=== PATIENT | male | born 1965 | race Caucasian/White ===

== ENCOUNTER → 2021-12-06 | Outpatient (CLI) | payer BC | END | disposition home or self-care (01) | LOC: LABWHC1 09:32 | PROVIDERS: ATTEND Surgery Plastic and Reconstructive Surgery | DX: Z01.818 Encounter for other preprocedural examination (principal); R07.9 Chest pain, unspecified | CPT/HCPCS: 36415; 93005 ==

== ENCOUNTER 2021-12-29 11:04 | Day surgery (SDC) | payer BC ==
--- NOTE | 2021-12-29 09:40 | P.GSHP ---
History of Present Illness H&P Date: 12/29/21 CHIEF COMPLAINT: Inguinal hernia, left HISTORY OF PRESENT ILLNESS: The patient is a 56-year-old male who presents with a history of swelling and pain along the left groin. He's noted increased swelling including pain of the area. Now he presents for repair of his inguinal hernia. PAST MEDICAL HISTORY: Please see list. PAST SURGICAL HISTORY: Please see list. MEDICATIONS: Please see list. ALLERGIES: Please see list. SOCIAL HISTORY: No illicit drug use FAMILY HISTORY: No reports of Crohn disease or ulcerative colitis. REVIEW OF ORGAN SYSTEMS: CONSTITUTIONAL: No reports of fevers or chills. No reports of weight loss despite prior attempts. GI: Denies any blood in stools or constipation. PHYSICAL EXAM: VITAL SIGNS: Stable GENERAL: Well-developed pleasant male in no acute distress. HEENT: No scleral icterus. Extraocular movements grossly intact. Moist buccal mucosa. NECK: Supple without lymphadenopathy. CHEST: Unlabored respirations. Equal bilateral excursions. CARDIOVASCULAR: Regular rate and rhythm. Distal 2+ pulses. ABDOMEN: Soft, nondistended. No peritoneal signs. Palpable defect of the left groin. MUSCULOSKELETAL: No clubbing, cyanosis, or edema. ASSESSMENT: 1. Inguinal hernia, left PLAN: 1. Recommend proceeding with a robotic inguinal repair with mesh with possible bilateral approach. 2. Benefits and risks of surgical intervention was discussed including possibility of open technique. 3. DVT prophylaxis. 4. Antibiotic prophylaxis. 5. Non narcotic pain management including abdominal wall block described 6. Blood sugar glucose described. 7. Weight loss management described. Past Medical History Past Medical History: No Reported History History of Any Multi-Drug Resistant Organisms: None Reported Past Surgical History: No Surgical Hx Reported Additional Past Anesthesia/Blood Transfusion Reaction / Comment(s): no family problems w/anethesia, pt. has never had surgery Smoking Status: Former smoker - Past Family History Mother Family Medical History: No Reported History Medications and Allergies Home Medications Medication Instructions Recorded Confirmed Type No Known Home Medications 12/28/21 12/28/21 History Allergies Allergy/AdvReac Type Severity Reaction Status Date / Time No Known Allergies Allergy Verified 12/28/21 08:31
[~2021-12-29 11:04] MED LIST: ACETAMINOPHEN TAB 500 MG TAB PO PRN; FAMOTIDINE 20 MG TAB PO STA; GABAPENTIN 300 MG CAP PO PRN; MELOXICAM 7.5 MG TAB PO SCH; TAMSULOSIN 0.4 MG CAP.ER.24H PO PRN
[2021-12-29] MEDS ORDERED: MIDAZOLAM 2 MG/2 ML VIAL IVP ONE (11:27)
[2021-12-29] MEDS ORDERED: LACTATED RINGERS 1,000 ML IV ONE (11:41)
[2021-12-29] MEDS: HEPARIN SODIUM,PORCINE/PF 5,000 UNIT/0.5 ML SYRINGE SQ PRN ×2 (11:42→12:38)
[2021-12-29] MEDS ORDERED: FAMOTIDINE 20 MG TAB PO ONE (11:44)
[2021-12-29 12:09] LABS: Basophils # (A) 0.1 k/uL (0-0.2); Basophils % (A) 1 %; Eosinophils # (A) 0.1 k/uL (0-0.7); Eosinophils % (A) 2 %; HCT 46.4 % (39.0-53.0); HGB 16.4 gm/dL (13.0-17.5); Lymphocytes # (A) 2.1 k/uL (1.0-4.8); Lymphocytes % (A) 33 %; MCH 30.7 pg (25.0-35.0); MCHC 35.3 g/dL (31.0-37.0); MCV 87.2 fL (80.0-100.0); Mean Platelet Volume 8.8; Monocytes # (A) 0.4 k/uL (0-1.0); Monocytes % (A) 7 %; Neutrophils # (A) 3.5 k/uL (1.3-7.7); Neutrophils % (A) 55 %; Platelet Count 242 k/uL (150-450); RBC 5.32 m/uL (4.30-5.90); RDW 12.8 % (11.5-15.5); WBC 6.4 k/uL (3.8-10.6)
[2021-12-29 12:28] LABS: ALT 56 U/L (4-49); African American GFR (CKD) >90 (>60 ml/min/1.73 sqM); Albumin 4.3 g/dL (3.5-5.0); Anion Gap 11 mmol/L; Blood Urea Nitrogen 8 mg/dL (9-20); Carbon Dioxide 23 mmol/L (22-30); Chloride 106 mmol/L (98-107); Glucose 98 mg/dL (74-99); Non-African American GFR(CKD) >90 (>60 ml/min/1.73 sqM); Sodium 140 mmol/L (137-145); Total Bilirubin 1.3 mg/dL (0.2-1.3); Total Protein 7.6 g/dL (6.3-8.2)
[2021-12-29 12:47] LABS: AST 48 U/L (17-59); Alkaline Phosphatase 62 U/L (38-126); Potassium 4.8 mmol/L (3.5-5.1)
[2021-12-29] MEDS ORDERED: LIDOCAINE 1%-EPI 1:100,000 20 ML VIAL SQ ONE ×2 (13:01→14:21)
[2021-12-29] MEDS ORDERED: PROPOFOL 10 MG/ML 20 ML VIAL IV ONE (13:44)
[2021-12-29] MEDS ORDERED: LIDOCAINE 2% INJ 20 MG/ML (2 ML VIAL) ONE (13:44)
[2021-12-29] MEDS ORDERED: NEOSTIGMINE 1 MG/ML 10 ML VIAL ONE (13:44)
[2021-12-29] MEDS ORDERED: ROCURONIUM 10 MG/ML (5 ML VIAL) IV ONE (13:44)
[2021-12-29] MEDS ORDERED: fentaNYL (PF) 50 MCG/ML 2 ML AMP ONE (13:44)
[2021-12-29] MEDS ORDERED: GLYCOPYRROLATE 0.2 MG/ML 2 ML VIAL ONE (13:44)
[2021-12-29] MEDS ORDERED: MIDAZOLAM 2 MG/2 ML VIAL ONE (13:44)
[2021-12-29] MEDS ORDERED: DEXAMETHASONE SOD PHOSPHATE 4 MG/ML 1 ML VIAL ONE (13:44)
[2021-12-29] MEDS ORDERED: SUCCINYLCHOLINE CHLORIDE 200 MG/10 ML VIAL IV ONE (13:44)
[2021-12-29] MEDS ORDERED: ROPIVACAINE 5 MG/ML 30 ML VIAL ONE (13:44)
[2021-12-29 15:27] VITALS: TEMP 97.1
--- NOTE | 2021-12-29 15:51 | P.OP ---
Date of Procedure: 12/29/21 Description of Procedure: SURGEON: KATHERINE LU MD PREOPERATIVE DIAGNOSES: 1. Initial left inguinal hernia POSTOPERATIVE DIAGNOSES: 1. Initial left inguinal hernia, indirect 3 cm, with sigmoid colon incarcerated OPERATION: 1. Robotic assisted da Deshawn Xi laparoscopic repair of left inguinal hernia repair with ventralight ST mesh, 11.4 cm. Anesthesia: GETA, local Estimated Blood Loss (ml): 5 Pathology: other (Left inguinal sac) Condition: stable Disposition: floor COMPLICATIONS: None. Operative Findings: 1. Large left inguinal indirect hernia, 3 cm with sigmoid colon incarceration 2. No right inguinal hernia INDICATIONS: The patient is a 56-year-old gentleman who presents with history of left inguinal hernia. Now presents for definitive surgical intervention. Laparoscopic versus open and robotic approaches were discussed. Benefits and risks including bleeding, infection, injury to the vas deferens as well as sterility and chronic groin pain were reviewed. Placement of mesh was also described. Informed consent was obtained. DESCRIPTION: In the preoperative area, the patient was marked with indelible marker along the left groin. The patient was brought to the operating room and laid in supine position. After general induction, the abdomen had been prepped and draped in standard sterile fashion. Ioban draping was also placed. Prior to incision, a timeout protocol was confirmed with surgical team regarding patient's name including procedures to be performed and location along the left groin. Initial positioning for the robotic assisted ports were selected whereby 20 cm superior to the target anatomy, 0 degree 5 mm laparoscopic trocar entry was performed at the left upper quadrant. The abdomen was insufflated to 15 mmHg which he had tolerated well. Diagnostic laparoscopy demonstrated fatty liver disease. Additionally the sigmoid colon was incarcerated into the left groin with an indirect left inguinal hernia over 3 cm in size. The right groin was unremarkable. Next, along the epigastrium, 8 mm robot trocar was placed. An 8-mm robotic trocar was placed under direct visualization at the right upper quadrant. The 5 mm port was exchanged for a 8 mm trocar. All trocars were positioned between 8 to 10-cm apart from each other. The patient was placed in reverse Trendelenburg position, 14. The [employer] XI robot was primed, draped, prepared for docking along the upper abdomen of the patient. I then went to the [employer] [employer] [facility] console. The assistant site manager was at bedside for exchange of the robot arms and equipment. At the left groin, over 3 cm indirect inguinal hernia was identified. The hernia sac was evaginated whereby the peritoneum was scored using Endo scissors with cautery. Once completely reduced into the abdominal cavity, the peritoneal sac of the hernia was identified. The sac was resected and then passed off for further pathological analysis. The size of the hernia defect was 3 cm with intraoperative films obtained. Using nonabsorbable 2-0 VLOC, the peritoneal defect of the left inguinal hernia site was closed using a pursestring suture. The defect was found to be completely closed with complete reduction of the left inguinal hernia was confirmed. As an onlay, an 11.[address] mesh by [employer] was cut in half and entered into the abdominal cavity via the 8 mm trocar. The mesh was tacked to the pelvis using absorbable 2-0 VLOC x 9-inch length sutures. The robot was undocked from the patient's bedside. I then rescrubbed into the case. Insufflation was released from the abdominal cavity and all instruments were removed from the abdominal cavity. The rest of incisions were reapproximated using 4-0 Monocryl in a running subcuticular fashion. Incisions were cleansed using dilute hydrogen peroxide. Liquid glue was applied to the skin. At the end of the procedure, the needle, sponge and instrument counts had been verified correct by the surgical dressing maker. The patient had tolerated the procedure well and was taken to the postanesthesia care unit in stable condition. Intraoperative findings were described to the patient's family who were pleased with the level of care. Plan - Discharge Summary Discharge Rx Participant: No New Discharge Prescriptions: New Ibuprofen [Motrin] 600 mg PO Q8HR PRN #30 tab PRN Reason: Pain Acetaminophen Tab [Tylenol Tab] 1,000 mg PO Q6HR PRN #30 tablet PRN Reason: Pain Tamsulosin [Flomax] 0.4 mg PO DAILY #5 cap Discharge Medication List Acetaminophen Tab [Tylenol Tab] 1,000 mg PO Q6HR PRN #30 tablet 12/29/21 [Rx] Ibuprofen [Motrin] 600 mg PO Q8HR PRN #30 tab 12/29/21 [Rx] Tamsulosin [Flomax] 0.4 mg PO DAILY #5 cap 12/29/21 [Rx] Follow up Appointment(s)/Referral(s): Katherine Lu MD [STAFF PHYSICIAN] - 01/03/22 Patient Instructions/Handouts: Inguinal Hernia (DC), Laparoscopic Herniorrhaphy (IP), *[facility] - Managing Your Pain After Surgery Without Opioids Activity/Diet/Wound Care/Special Instructions: Using antibacterial soap. No lifting over 10 pounds 2 weeks, Jan 12 May shower. No bathtub soaks for 2 weeks, Jan 12 Use ice along incisions for today to prevent swelling. Take tylenol, aleve/ibuprofen, simethicone scheduled for 3 days for best pain relief
[2021-12-29 16:25] VITALS: RESP 16
[2021-12-29 17:51] VITALS: BP 124/76; PULSE 75
--- NOTE | 2021-12-30 09:41 | P.ANPRN ---
Procedure Note - Anesthesia - Nerve Block Performed Bilateral Transversus Abdominis Single Time Out Performed: Yes Date of Procedure: 12/29/21 Procedure Start Time: 12:26 Procedure Stop Time: 12:33 Location of Patient: PreOp Indication: Acute Post-Operative Pain, Requested by Surgeon Sedation Type: Sedate with meaningful contact maintained Preparation: Sterile Prep Position: Supine Needle Types: Pajunk Needle Gauge: 21 Ultrasound used to visualize needle placement: Yes Ultrasound used to observe medication spread: Yes Blood Aspirated: No Pain Paresthesia on Injection Noted: No Resistance on Injection: Normal Image Stored and Saved: Yes Events: Uneventful and Well Tolerated (ropivacaine 0.5% 20 mL plus dexamethasone 4 mg given bilaterally)
== END 2021-12-29 17:45 | disposition home or self-care (01) ==
LOC: OR 11:04
PROVIDERS: ATTEND Surgery Plastic and Reconstructive Surgery
DX: K40.90 Unilateral inguinal hernia, without obstruction or gangrene, not specified as recurrent (principal); G89.18 Other acute postprocedural pain; Z79.899 Other long term (current) drug therapy; Z87.891 Personal history of nicotine dependence
CPT/HCPCS: 64488; 80053; 85025; 49650; C1781; J2250; J0330; J1100; J2710; J0690; J3010; J2795; J2704; J1644; J2001; 88302

== ENCOUNTER → 2023-02-20 | Outpatient (CLI) | payer BC | END | disposition home or self-care (01) | LOC: LABWHC1 11:22 | PROVIDERS: ATTEND Surgery Plastic and Reconstructive Surgery | DX: I11.9 Hypertensive heart disease without heart failure (principal); I49.3 Ventricular premature depolarization | CPT/HCPCS: 36415; 93005 ==

== ENCOUNTER 2023-03-16 05:43 | Day surgery (SDC) | payer BC ==
[~2023-03-16 05:43] MED LIST changes: -FAMOTIDINE 20 MG TAB PO STA; -GABAPENTIN 300 MG CAP PO PRN; +HEPARIN SODIUM,PORCINE 5,000 UNIT/ML 1 ML VIAL SQ PRN; +MELOXICAM 7.5 MG TAB PO PRN; -MELOXICAM 7.5 MG TAB PO SCH; +ONDANSETRON 4 MG/2 ML VIAL IVP PRN; -TAMSULOSIN 0.4 MG CAP.ER.24H PO PRN
[2023-03-16] MEDS ORDERED: LACTATED RINGERS 1,000 ML IV SCH (06:09)
[2023-03-16] MEDS ORDERED: TAMSULOSIN 0.4 MG CAP.ER.24H PO STA (06:32)
--- NOTE | 2023-03-16 06:32 | P.GSHP ---
History of Present Illness H&P Date: 03/16/23 CHIEF COMPLAINT: Inguinal hernia, right. HISTORY OF PRESENT ILLNESS: The patient is a 57-year-old male who presents with a history of swelling and pain along the right groin. He's noted increased swelling including pain of the area. Now he presents for repair of his inguinal hernia. PAST MEDICAL HISTORY: Please see list. PAST SURGICAL HISTORY: Please see list. MEDICATIONS: Please see list. ALLERGIES: Please see list. SOCIAL HISTORY: No illicit drug use FAMILY HISTORY: No reports of Crohn disease or ulcerative colitis. REVIEW OF ORGAN SYSTEMS: CONSTITUTIONAL: No reports of fevers or chills. No reports of weight loss despite prior attempts. GI: Denies any blood in stools or constipation. PHYSICAL EXAM: VITAL SIGNS: Stable GENERAL: Well-developed pleasant male in no acute distress. HEENT: No scleral icterus. Extraocular movements grossly intact. Moist buccal mucosa. NECK: Supple without lymphadenopathy. CHEST: Unlabored respirations. Equal bilateral excursions. CARDIOVASCULAR: Regular rate and rhythm. Distal 2+ pulses. ABDOMEN: Soft, nondistended. No peritoneal signs. Palpable defect of the right groin. MUSCULOSKELETAL: No clubbing, cyanosis, or edema. ASSESSMENT: 1. Inguinal hernia, right PLAN: 1. Recommend proceeding with a robotic inguinal repair with mesh with possible bilateral approach. 2. Benefits and risks of surgical intervention was discussed including possibility of open technique. 3. DVT prophylaxis. 4. Antibiotic prophylaxis. 5. Non narcotic pain management including abdominal wall block described 6. Blood sugar glucose described. 7. Weight loss management described. Past Medical History Past Medical History: Sleep Apnea/CPAP/BIPAP Additional Past Medical History / Comment(s): dx. years ago w/mild sleep apnea- doesn't need anything for it History of Any Multi-Drug Resistant Organisms: None Reported Past Surgical History: Hernia Repair Additional Past Surgical History / Comment(s): left inguinal hernia repair Past Anesthesia/Blood Transfusion Reactions: No Reported Reaction Additional Past Anesthesia/Blood Transfusion Reaction / Comment(s): no family problems w/anethesia, pt. has never had surgery Smoking Status: Former smoker - Past Family History Mother Family Medical History: No Reported History Medications and Allergies Home Medications Medication Instructions Recorded Confirmed Type No Known Home Medications 03/14/23 03/14/23 History Allergies Allergy/AdvReac Type Severity Reaction Status Date / Time Penicillins Allergy passed out Verified 03/16/23 06:26 as a kid
[2023-03-16] MEDS ORDERED: HYDROmorphone 0.5 MG/0.5 ML SYRINGE IVP PRN (07:00)
[2023-03-16] MEDS ORDERED: MIDAZOLAM 2 MG/2 ML VIAL IV PRN (07:00)
[2023-03-16] MEDS ORDERED: TAMSULOSIN 0.4 MG CAP.ER.24H PO ONE (07:33)
--- NOTE | 2023-03-16 07:39 | P.ANPRN ---
Procedure Note - Anesthesia - Nerve Block Performed Right Erector Spinae Single Time Out Performed: Yes Date of Procedure: 03/16/23 Procedure Start Time: 07:05 Procedure Stop Time: 07:15 Location of Patient: PreOp Indication: Acute Post-Operative Pain, Analgesia, Requested by Surgeon Sedation Type: Sedate with meaningful contact maintained Preparation: Sterile Prep Position: Sitting Needle Types: Pajunk Needle Gauge: 21 Ultrasound used to visualize needle placement: Yes Ultrasound used to observe medication spread: Yes Injectate: 0.5% Ropivacaine (see comment for volume) (Ropiv 10ml+NS 10ml) Blood Aspirated: No Pain Paresthesia on Injection Noted: No Resistance on Injection: Normal Image Stored and Saved: Yes Events: Uneventful and Well Tolerated
[2023-03-16] MEDS ORDERED: SODIUM CHLORIDE 0.9% (PF) 10 ML VIAL ONE (07:48)
[2023-03-16] MEDS ORDERED: SUCCINYLCHOLINE CHLORIDE 200 MG/10 ML VIAL IV ONE (07:48)
[2023-03-16] MEDS ORDERED: ROCURONIUM 10 MG/ML (5 ML VIAL) IV ONE (07:48)
[2023-03-16] MEDS ORDERED: LIDOCAINE 1% INJ 10MG/ML (20 ML MDV) ONE (07:48)
[2023-03-16] MEDS ORDERED: KETAMINE HCL IN 0.9 % NACL 50 MG/5 ML SYRINGE ONE (07:48)
[2023-03-16] MEDS ORDERED: fentaNYL (PF) 50 MCG/ML 2 ML AMP ONE (07:48)
[2023-03-16] MEDS ORDERED: MIDAZOLAM 2 MG/2 ML VIAL ONE (07:48)
[2023-03-16] MEDS ORDERED: GLYCOPYRROLATE 0.2 MG/ML 2 ML VIAL ONE (07:48)
[2023-03-16] MEDS ORDERED: ROPIVACAINE 5 MG/ML 30 ML VIAL ONE (07:48)
[2023-03-16] MEDS ORDERED: PROPOFOL 10 MG/ML 20 ML VIAL IV ONE (07:48)
[2023-03-16] MEDS ORDERED: NEOSTIGMINE 1 MG/ML 10 ML VIAL ONE (07:48)
[2023-03-16] MEDS ORDERED: LIDOCAINE 0.5%-EPI 1:200,000 50 ML VIAL SQ ONE (07:53)
[2023-03-16] MEDS ORDERED: LACTATED RINGERS 1,000 ML IV ONE (09:22)
--- NOTE | 2023-03-16 09:37 | P.OP ---
Date of Procedure: 03/16/23 Description of Procedure: SURGEON: KATHERINE LU MD PREOPERATIVE DIAGNOSES: 1. Initial right inguinal hernia 2. Prior left inguinal hernia repair POSTOPERATIVE DIAGNOSES: 1. Initial right inguinal hernia, indirect with small bowel obstruction 2. Prior left inguinal hernia repair 3. Pelvic adhesions, left OPERATION: 1. Robotic-assisted da Deshawn Xi laparoscopic right inguinal hernia repair with mesh, 11.[address] 2. Robotic-assisted da Deshawn Xi laparoscopic lysis of adhesions over 30 minutes ANESTHESIA: General with local anesthetic ESTIMATED BLOOD LOSS: 5 mL. SPECIMENS REMOVED: Right inguinal hernia sac COMPLICATIONS: None. FINDINGS: 1. Nyhus type II indirect inguinal hernia, reducible, initial, 4 cm 2. Non-absorbable 2-0 VLOC used 3. Incarcerated small bowel, right groin reduced INDICATIONS: The patient is a 57-year-old gentleman who presents with right groin pain 3 months. He has prior left inguinal hernia repair. Now presents for definitive surgical intervention. Laparoscopic versus open and robotic approaches were discussed. Benefits and risks including bleeding, infection, injury to the vas deferens as well as sterility and chronic groin pain were reviewed. Placement of mesh was also described. Informed consent was obtained. DESCRIPTION: In the preoperative area, the patient was marked with indelible marker along the inguinal hernia. The patient was brought to the operating room and initially laid in supine position. The abdomen had been prepped and draped in standard sterile fashion. Ioban draping was also placed. Prior to incision, a timeout protocol was confirmed with surgical team regarding patient's name including procedures to be performed and location along the right groin. Initial positioning for the robotic assisted ports were selected whereby 20 cm superior to the target anatomy, 0 degree 5 mm laparoscopic trocar entry was performed at the left upper quadrant. The abdomen was insufflated to 15 mmHg which he had tolerated well. Diagnostic laparoscopy demonstrated a indirect inguinal hernia along the right groin. Next, along the epigastrium, 8 mm robot trocar was placed. An 8-mm robotic trocar was placed under direct visualization at the right upper quadrant. An 8 mm port was placed at the left upper quadrant. All trocars were positioned between 8 to 10-cm apart from each other. An accessory trocar was placed on the left lateral abdominal wall 12 mm. The [employer] XI robot was primed, draped, prepared for docking along the right side of the patient. The patient was placed in Trendelenberg position 21-degrees. I then went to the [employer] console. The promotions assistant was at bedside for exchange of the robot arms and equipment. No hernia was identified along the left groin. The right inguinal hernia sac was evaginated whereby the peritoneum was scored using Endo scissors with cautery. Once completely reduced into the abdominal cavity, the peritoneal sac was resected and then passed off for further pathological analysis. The sac extended to the scrotum, with partial resection to avoid injury to the testicles. The size of the hernia defect was 4 cm with intraoperative films obtained. Using a nonabsorbable 2-0 VLOC, the peritoneal defect of the right inguinal hernia site was closed using a pursestring suture. The defect was found to be completely closed with complete reduction of the right indirect inguinal hernia was confirmed. As an onlay, an 11.[address] mesh by [employer] was initially cut in half and entered into the abdominal cavity via the 8 mm trocar. The mesh was tacked to the pelvis using absorbable 2-0 VLOC 9-inch length sutures. Adhesions along his left pelvis were identified of the sigmoid colon to prior mesh repair. Lysis of adhesions using blunt dissection including scissor Bovie cautery was used without injury to the bowel. Pelvic adhesions were taken down. The robot was undocked from the patient's bedside. I then rescrubbed into the case. Insufflation was released from the abdominal cavity and all instruments were removed from the abdominal cavity. The rest of incisions were reapproximated using 4-0 Monocryl in a running subcuticular fashion. Incisions were cleansed using dilute hydrogen peroxide. Liquid glue was applied to the skin. At the end of the procedure, the needle, sponge and instrument counts had been verified correct by the surgical services tech. The patient had tolerated the procedure well and was taken to the postanesthesia care unit in stable condition. Plan - Discharge Summary Discharge Rx Participant: Yes New Discharge Prescriptions: New Acetaminophen Tab [Tylenol Tab] 1,000 mg PO Q6HR PRN #30 tablet PRN Reason: Pain Ibuprofen [Motrin] 600 mg PO Q8HR PRN #30 tab PRN Reason: Pain Simethicone [Gas-X] 125 mg PO AC-TID PRN #20 capsule PRN Reason: Pain Discharge Medication List Acetaminophen Tab [Tylenol Tab] 1,000 mg PO Q6HR PRN #30 tablet 03/16/23 [Rx] Ibuprofen [Motrin] 600 mg PO Q8HR PRN #30 tab 03/16/23 [Rx] Simethicone [Gas-X] 125 mg PO AC-TID PRN #20 capsule 03/16/23 [Rx] Follow up Appointment(s)/Referral(s): Katherine Lu MD [STAFF PHYSICIAN] - 03/20/23 5:00 pm (TELEHEALTH) Patient Instructions/Handouts: Laparoscopic Herniorrhaphy (PRE), Inguinal Hernia Repair (DC) Activity/Diet/Wound Care/Special Instructions: WILL CALL YOU FOR TELEHEALTH Using antibacterial soap. No lifting over 10 pounds 2 weeks, Mar 30July shower. No bathtub soaks for 2 weeks, Mar 30 Use ice along incisions for today to prevent swelling. Take tylenol, aleve/ibuprofen, simethicone scheduled for 3 days for best pain relief Discharge Disposition: HOME SELF-CARE
[2023-03-16 09:55] VITALS: TEMP 96.8
[2023-03-16 10:44] VITALS: RESP 18
[2023-03-16] MEDS ORDERED: KETOROLAC 15 MG/ML 1 ML VIAL IVP ONE (11:01)
[2023-03-16] MEDS ORDERED: KETOROLAC 15 MG/ML 1 ML VIAL ONE (11:01)
[2023-03-16 11:09] VITALS: BP 160/76; PULSE 54
[2023-03-16 11:41] LABS: Basophils # (A) 0.1 k/uL (0-0.2); Basophils % (A) 1 %; Eosinophils # (A) 0.1 k/uL (0-0.7); Eosinophils % (A) 2 %; HCT 47.8 % (39.0-53.0); HGB 16.6 gm/dL (13.0-17.5); Lymphocytes # (A) 2.2 k/uL (1.0-4.8); Lymphocytes % (A) 39 %; MCH 30.8 pg (25.0-35.0); MCHC 34.8 g/dL (31.0-37.0); MCV 88.7 fL (80.0-100.0); Mean Platelet Volume 9.9; Monocytes # (A) 0.5 k/uL (0-1.0); Monocytes % (A) 9 %; Neutrophils # (A) 2.7 k/uL (1.3-7.7); Neutrophils % (A) 47 %; Platelet Count 248 k/uL (150-450); RBC 5.39 m/uL (4.30-5.90); RDW 12.8 % (11.5-15.5); WBC 5.7 k/uL (3.8-10.6)
[2023-03-16 11:46] LABS: ALT 38 U/L (4-49); AST 33 U/L (17-59); African American GFR (CKD) >90 (>60 ml/min/1.73 sqM); Albumin 4.2 g/dL (3.5-5.0); Alkaline Phosphatase 61 U/L (38-126); Anion Gap 13 mmol/L; Blood Urea Nitrogen 13 mg/dL (9-20); Calcium 9.3 mg/dL (8.4-10.2); Carbon Dioxide 25 mmol/L (22-30); Chloride 104 mmol/L (98-107); Glucose 111 mg/dL (74-99); Non-African American GFR(CKD) >90 (>60 ml/min/1.73 sqM); Potassium 4.5 mmol/L (3.5-5.1); Sodium 142 mmol/L (137-145)
== END 2023-03-16 12:06 | disposition home or self-care (01) ==
LOC: OR 05:43
PROVIDERS: ATTEND Surgery Plastic and Reconstructive Surgery
DX: K40.90 Unilateral inguinal hernia, without obstruction or gangrene, not specified as recurrent (principal); G47.33 Obstructive sleep apnea (adult) (pediatric); K66.0 Peritoneal adhesions (postprocedural) (postinfection); K56.609 Unspecified intestinal obstruction, unspecified as to partial versus complete obstruction; Z87.891 Personal history of nicotine dependence; Z88.0 Allergy status to penicillin
CPT/HCPCS: 64999; 80053; 85025; 88302; 49650; C1781; J2250; J0330; J1644; J2710; J0690; J2405; J2001; J3010; J2795; J1885; J2704